=== PATIENT | male | born 1945 | race Caucasian/White ===

== ENCOUNTER → 2016-11-05 | Outpatient (CLI) | payer MEDICARE, OTHER ==
[~2016-11-05] MED LIST: ACET-2890 PO; BUPR-115 PO; CEPH-583 PO; FENO145T20 PO; FUROSEMIDE 40 MG/4 ML INJECTION ONE; HYDR-2164 PO; HYDR-3989 PO; LEVO100C4 PO; LISI-114 PO; METF-200 PO; METO25TA6 PO; NITR0.4T39 SL; PRAS10TA6 PO; ROSU20TA23 PO; SALINE FLUSH 10ml SYRINGE ONE; TRAZ-58 PO
--- NOTE | 2016-11-05 12:55 | DI ---
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 30 mg of Lasix was injected IV to assess for obstruction of the kidneys. Gamma camera images were acquired and time/activity curves were generated. Findings: Split function of the kidneys demonstrates 63% of the activity on the left and 37% on the right; on the reference study, this was 70% and 30%, respectively and there has been slight improvement. The flow phase demonstrates fairly prompt arrival the radiopharmaceutical bolus immediately following aortic visualization. The renogram curves demonstrates splayed curve on the right and a normal renogram curve on the left. However, after the injection of Lasix, prompt egress of excreted radiopharmaceutical from the right kidney is noted and thus there is no evidence of significant anatomic or functional obstruction. On the reference study, high-grade obstruction on the right with continued accumulation of the radiopharmaceutical following Lasix injection was noted. Impression: 1. Improvement in the split function of the kidneys as described above. 2. No gross arterial inflow abnormality is suspected bilaterally. 3. Excellent response of emptying of both kidneys, particularly the right following Lasix injection. Splaying of the right renogram curve before Lasix injection was likely due to a patulous or distended collecting system on the right. .
== END ==
LOC: IMA 08:37
PROVIDERS: ATTEND Urology
DX: Q62.11 Congenital occlusion of ureteropelvic junction (principal)
CPT/HCPCS: 78708; A9562; J1940